=== PATIENT | male | born 1935 | race Caucasian/White ===

== ENCOUNTER 2017-01-02 01:38 | Observation (INO) | payer OTHER, MEDICARE ==
[2017-01-02] MEDS ORDERED: IPRATROPIUM/ALBUTEROL 0.5-2.5 MG/3 ML AMPUL NEB ONE (02:11)
[2017-01-02] MEDS ORDERED: METHYLPREDNISOLONE INJ 125 MG/2 ML SDV IV ONE (02:11)
--- NOTE | 2017-01-02 02:13 | ER Document Report ---
ED General - General Chief Complaint: Shortness Of Breath Stated Complaint: TROUBLE BREATHING Time Seen by Provider: 01/02/17 01:51 Cannot obtain history due to: Unstable vital signs Notes: Patient is an 81-year-old male with a past medical history of COPD with chronic oxygen dependence between 3 and 4 L by nasal cannula at all times as well as a history of lung malignancy not currently receiving any therapy due to his desire to who presents with acute shortness of breath. Patient states he woke up from a nap acutely short of breath. He tried a nebulizer with minimal improvement of his symptoms. States has a history of similar symptoms in the past for COPD exacerbations that have required hospitalizations. He does arrive by EMS. He denies any associated chest pain, fever or constitutional symptoms. History is otherwise somewhat limited secondary to patient's respiratory distress. - Related Data Allergies/Adverse Reactions: No Known Allergies Allergy (Verified 06/03/12 12:46) Home Medications: Current Home Medications Albuterol Sulfate [Proair Hfa Inhalation Aerosol 8.5 gm Mdi] 1 puff IH Q4 PRN [History] Dexlansoprazole [Dexilant 60 mg Capsule] 60 mg PO DAILY 01/02/17 [History] Fluticasone/Salmeterol [Advair HFA 115-21 mcg Inhaler] 2 puff IH ASDIR PRN 01/02 [History] Oxycodone HCl [Oxycodone HCl 10 MG Tablet] 10 mg PO Q4HP PRN 01/02/17 [History] Tamsulosin HCl 0.4 mg PO BID 01/02/17 [History] Temazepam [Restoril] 22.5 mg PO QHS 01/02/17 [History] Past Medical History - General Information source: Patient - Social History Smoking Status: Former Smoker Frequency of alcohol use: None Drug Abuse: None Lives with: Spouse/Significant other Family History: Reviewed & Not Pertinent Pulmonary Medical History: Reports: Hx COPD Neurological Medical History: Denies: Hx Seizures Past Surgical History: Reports: Hx Abdominal Surgery, Hx Cardiac Catheterization - Immunizations Hx Diphtheria, Pertussis, Tetanus Vaccination: Yes Hx Pneumococcal Vaccination: 11/12/11 Review of Systems - Review of Systems Notes: Constitutional: Negative for fever. HENT: Negative for sore throat. Eyes: Negative for visual changes. Cardiovascular: Negative for chest pain. Respiratory: Positive for shortness of breath. Gastrointestinal: Negative for abdominal pain, vomiting or diarrhea. Genitourinary: Negative for dysuria. Musculoskeletal: Negative for back pain. Skin: Negative for rash. Neurological: Negative for headaches, weakness or numbness. 10 point ROS negative except as marked above and in HPI. Physical Exam - Vital signs Vitals: Pulse Ox 100 01/02/17 01:46 Interpretation: Tachycardic, Tachypneic Notes: PHYSICAL EXAMINATION: GENERAL: Somewhat emaciated, appears to be in moderate respiratory distress and uncomfortable HEAD: Atraumatic, normocephalic. EYES: Pupils equal round and reactive to light, extraocular movements intact, sclera anicteric, conjunctiva are normal. ENT: nares patent, oropharynx clear without exudates. Moderately dry mucous membranes. NECK: Normal range of motion, supple without lymphadenopathy LUNGS: Diminished breath sounds throughout. Scattered wheezes and rhonchi throughout. HEART: Regular tachycardia without murmurs ABDOMEN: Soft, nontender, normoactive bowel sounds. No guarding, no rebound. No masses appreciated. EXTREMITIES: Normal range of motion, no pitting or edema. No cyanosis. NEUROLOGICAL: No focal neurological deficits. Moves all extremities spontaneously and on command. PSYCH: Normal mood, normal affect. SKIN: Warm, Dry, normal turgor, no rashes or lesions noted. Course - Re-evaluation Re-evalutation: 01/02/17 02:12 Patient arrives in moderate respiratory distress, breathing 28-30 times a minute , supraclavicular retractions, rhonchorous and wheezing air movement throughout. Patient has a history of COPD with baseline oxygen dependence and a history of lung malignancy that he is not receiving therapy for. Although patient was not hypoxic he stated he felt he could not breathe and was having progressively worsening tachypnea on a nonrebreather. He was therefore placed on BiPAP with significant improvement of his work of breathing. Continuous in- line nebulizers were initiated. An IV was established and Solu-Medrol as well as magnesium have been given. Will obtain chest x-ray, labs, and continue to monitor closely. Patient is critically ill at this time given his ongoing tachypnea and need for positive pressure ventilation. 01/02/17 03:04 Patient's work of breathing is dramatically improved on the BiPAP. Current respiratory rate is 19, saturating 98% on 35% FiO2 12 on 6. Initial laboratories are unremarkable. Awaiting chest x-ray. 01/02/17 03:39 X-ray does show a large right lung mass and possible right lower lobe pneumonia. With the remainder laboratories. Patient's work of breathing remains improved on BiPAP. Have increased patient's 60% FiO2 to maintain his saturations above 95%. Will start empirically on IV ceftriaxone, IV fluids, and plan for admission. 01/02/17 04:12 Patient's work of breathing remains improved. I discussed with Dr. Ramirez who will accept the patient for admission. - Vital Signs Vital signs: Temp Pulse Resp BP Pulse Ox 97.8 F 24 H 96 01/02/17 01:51 01/02/17 03:26 01/02/17 03:26 - Laboratory Result Diagrams: 01/02/17 02:35 01/02/17 02:35 Laboratory results interpreted by me: 01/02/17 01/02/17 02:35 02:35 RBC 3.76 L Hgb 10.4 L Hct 30.1 L RDW 15.0 H Seg Neutrophils % 78.5 H Sodium 133.4 L Chloride 94 L Glucose 120 H Albumin 3.1 L - Diagnostic Test Radiology reviewed: Image reviewed, Reports reviewed Radiology results interpreted by me: 01/02/17 04:12 Chest x-ray: Large right lung mass. Critical Care Note - Critical Care Note Total time excluding time spent on procedures (mins): 38 Comments: Critical care time spent obtaining history from patient or surrogate, discussions with consultants, development of treatment plan with patient or surrogate, evaluation of patient's response to treatment, examination of patient , ordering and performing treatments and interventions, ordering and review of laboratory studies, re-evaluation of patient's condition, ordering and review of radiographic studies and review of old charts Discharge - Discharge Clinical Impression: Respiratory distress, COPD exacerbation Lung cancer Qualifiers: Laterality: right Lung location: unspecified part of lung Qualified Code(s): C34.91 - Malignant neoplasm of unspecified part of right bronchus or lung Condition: Fair Disposition: ADMITTED INPATIENT Admitting Provider: Hospitalist Unit Admitted: [facility]
[2017-01-02] MEDS: MAGNESIUM SULFATE/D5W 1 GM/100 ML RTUPB IV SCH ×2 (02:25→03:00)
[2017-01-02 02:45] LABS: ABSOLUTE EOSINOPHILS # (AUTO) 0.1 10^3/uL (0.0-0.6); ABSOLUTE LYMPHOCYTES (AUTO) 1.2 10^3/uL (0.5-4.7); ABSOLUTE MONOCYTES (AUTO) 0.5 10^3/uL (0.1-1.4); ABSOLUTE NEUT (AUTO) 6.5 10^3/uL (1.7-8.2); BASOPHILS % (AUTO) 0.4 % (0-2); EOSINOPHILS % (AUTO) 0.8 % (0-6); HEMATOCRIT 30.1 % (37.9-51.0); HEMOGLOBIN 10.4 g/dL (13.5-17.0); HGB HCT DIFFERENCE 1.1; LYMPHOCYTES % (AUTO) 14.2 % (13-45); MEAN CORPUSCULAR HEMOGLOBIN 27.6 pg (27.0-33.4); MEAN CORPUSCULAR HGB CONC 34.4 g/dL (32.0-36.0); MEAN CORPUSCULAR VOLUME 80 fl (80-97); MONOCYTES % (AUTO) 6.1 % (3-13); RED BLOOD COUNT 3.76 10^6/uL (4.35-5.55); SEGMENTED NEUTROPHILS % (AUTO) 78.5 % (42-78); WHITE BLOOD COUNT 8.2 10^3/uL (4.0-10.5)
[2017-01-02] MEDS ORDERED: NORMAL SALINE 1000 ML 1,000 ML IV ONE (03:39)
[2017-01-02 04:06] LABS: ALANINE AMINOTRANSFERASE 26 U/L (21-72); ALBUMIN 3.1 g/dL (3.5-5.0); ALKALINE PHOSPHATASE 82 U/L (38-126); ANION GAP 9 (5-19); ASPARTATE AMINO TRANSFERASE 18 U/L (17-59); BILIRUBIN,DIRECT 0.4 mg/dL (0.0-0.4); BILIRUBIN,TOTAL 0.8 mg/dL (0.2-1.3); BLOOD UREA NITROGEN 12 mg/dL (7-20); CALCIUM 8.9 mg/dL (8.4-10.2); CARBON DIOXIDE 30 mmol/L (22-30); CHLORIDE 94 mmol/L (98-107); CREATININE RESULT 0.82 mg/dL (0.52-1.25); GLUCOSE 120 mg/dL (75-110); POTASSIUM 4.5 mmol/L (3.6-5.0); SODIUM 133.4 mmol/L (137-145); TOTAL PROTEIN 6.7 g/dL (6.3-8.2)
--- NOTE | 2017-01-02 04:12 | RADIOLOGY REPORT (SQ) ---
EXAM DESCRIPTION: CHEST SINGLE VIEW COMPLETED DATE/TIME: 01/02/2017 3:42 am REASON FOR STUDY: Shortness of breath. Known right lung mass. Palliative care. COMPARISON: CT chest 06/04/2012. Chest x-ray 06/03/2012. EXAM PARAMETERS: NUMBER OF VIEWS: One view. TECHNIQUE: Single frontal radiographic view of the chest acquired. RADIATION DOSE: NA LIMITATIONS: None. FINDINGS: LUNGS AND PLEURA: Airspace opacity at the right suprahilar region. Hyperlucent lungs, sug gestive of emphysema. No pleural effusion or pneumothorax. MEDIASTINUM AND HILAR STRUCTURES: Dilated descending thoracic aorta, probably corresponding to known thoracic aneurysm, appears increased in the interval. HEART AND VASCULAR STRUCTURES: The heart is not enlarged. No overt vascular congestion. BONES: No acute findings. HARDWARE: None in the chest. IMPRESSION: Airspace opacity at the right suprahilar region, may correspond to known mass. Descendi ng thoracic aortic aneurysm, appears increased in the interval. Emphysema. COMMENT: Pertinent findings on the imaging study reported as a CRITICAL RESULT to GLENN miranda t04:00 hrs on 01/02/2017. Category of Critical Result: Airspace opacity at the right suprahilar region. Descending thoracic ao rtic aneurysm. TECHNICAL DOCUMENTATION: JOB ID: [id number]
[2017-01-02] MEDS ORDERED: OXYCODONE HCL IR 5 MG TABLET PO PRN (04:51)
[2017-01-02] MEDS ORDERED: ALBUTEROL SULFATE 0.083% NEB 2.5 MG/3 ML AMPUL NEB PRN (04:54)
[2017-01-02] MEDS ORDERED: ONDANSETRON HCL INJ/PF 4 MG/2 ML SDV IV PRN ×2 (04:54→11:00)
[2017-01-02] MEDS ORDERED: ALBUTEROL SULFATE HFA (90 MCG/PUFF) 200 PUFF/8.5 GM MDI IH PRN ×2 (04:58→09:36)
[2017-01-02] MEDS ORDERED: CEFTRIAXONE 1 GM/D5W RTU 1 GM/50 ML RTUPB IV ONE (05:00)
--- NOTE | 2017-01-02 05:29 | PDOC H&P ---
History of Present Illness Admission Date/PCP: 01/02/17 04:24 Dr. Solo History of Present Illness: DERIK NAJERA is a 81 year old male with a past medical history of O2 dependent COPD normally on between 3 and 4 L by nasal cannula, thoracic aortic aneurysm, lung malignancy not currently receiving any therapy due to his choice who presents with acute shortness of breath. Patient states he woke up from a nap acutely short of breath. He tried a nebulizer with minimal improvement of his symptoms. States has a history of similar symptoms in the past for COPD exacerbations that have required hospitalizations. He denies any associated chest pain, fever or constitutional symptoms. Patient reports at this time that he does not want any of this. He reports that he has been having hemoptysis and increased cough. He does report bilateral lower extremity swelling left greater than right. He reports his son has just left town and his daughter is expected in today. He would like to go home with hospice as soon as possible. He is referred to the hospitalist service for observation Past Medical History Cardiac Medical History: Reports: Other - Thoracic aortic aneurysm Pulmonary Medical History: Reports: Chronic Obstructive Pulmonary Disease (COPD) Neurological Medical History: Denies: Seizures Malignancy Medical History: Reports: Lung Cancer Past Surgical History Past Surgical History: Reports: Cardiac Catheterization, Knee Replacement, Other - Aortic graft Social History Lives with: Alone Smoking Status: Former Smoker Frequency of Alcohol Use: Social Hx Recreational Drug Use: No Hx Prescription Drug Abuse: No - Advance Directive Resuscitation Status: Do Not Resuscitate Surrogate healthcare decision maker:: SonDerik Jamaal Family History Family History: Malignancy Parental Family History Reviewed: Yes Children Family History Reviewed: Yes Sibling(s) Family History Reviewed.: Yes Medication/Allergy Home Medications: Albuterol Sulfate [Proair Hfa Inhalation Aerosol 8.5 gm Mdi] 1 puff IH Q4 PRN Dexlansoprazole [Dexilant 60 mg Capsule] 60 mg PO DAILY 01/02/17 Fluticasone/Salmeterol [Advair HFA 115-21 mcg Inhaler] 2 puff IH ASDIR PRN 01/02 Oxycodone HCl [Oxycodone HCl 10 MG Tablet] 10 mg PO Q4HP PRN 01/02/17 Tamsulosin HCl 0.4 mg PO BID 01/02/17 Temazepam [Restoril] 22.5 mg PO QHS 01/02/17 Allergies/Adverse Reactions: No Known Allergies Allergy (Verified 06/03/12 12:46) Review of Systems Constitutional: PRESENT: fatigue, weakness. ABSENT: chills, fever(s), headache( s), weight gain, weight loss Eyes: ABSENT: visual disturbances Ears: ABSENT: hearing changes Cardiovascular: PRESENT: edema. ABSENT: chest pain, dyspnea on exertion, orthropnea, palpitations Respiratory: PRESENT: cough, dyspnea, hemoptysis, sputum Gastrointestinal: PRESENT: constipation, heartburn. ABSENT: abdominal pain, diarrhea, hematemesis, hematochezia, melena, nausea, vomiting Genitourinary: ABSENT: dysuria, hematuria Musculoskeletal: ABSENT: joint swelling Integumentary: ABSENT: rash, wounds Neurological: ABSENT: abnormal gait, abnormal speech, confusion, dizziness, focal weakness, syncope Psychiatric: ABSENT: anxiety, depression, homidical ideation, suicidal ideation Endocrine: ABSENT: cold intolerance, heat intolerance, polydipsia, polyuria Hematologic/Lymphatic: ABSENT: easy bleeding, easy bruising Physical Exam Vital Signs: Temp Pulse Resp BP Pulse Ox 97.8 F 25 H 115/86 H 98 01/02/17 01:51 01/02/17 04:00 01/02/17 01:51 01/02/17 04:00 Intake & Output 12/31/16 01/01/17 01/02/17 06:59 06:59 06:59 Weight 70.307 kg General appearance: PRESENT: severe distress, thin, other - Chronically ill- appearing Head exam: PRESENT: atraumatic, normocephalic Eye exam: PRESENT: conjunctiva pink, EOMI, PERRLA. ABSENT: conjunctival injection, scleral icterus Ear exam: PRESENT: normal external ear exam Mouth exam: PRESENT: moist, tongue midline Neck exam: ABSENT: JVD, lymphadenopathy, thyromegaly, tracheal deviation Respiratory exam: PRESENT: accessory muscle use, crackles, prolonged expiratory phas, retraction, symmetrical, tachypnea, wheezes. ABSENT: rales, rhonchi Cardiovascular exam: PRESENT: RRR, +S1, +S2, systolic murmur, tachycardia. ABSENT: diastolic murmur, rubs Pulses: PRESENT: normal dorsalis pedis pul Vascular exam: PRESENT: normal capillary refill GI/Abdominal exam: PRESENT: hypoactive bowel sounds, soft. ABSENT: distended, firm, guarding, mass, Duque's sign, organolmegaly, rebound, rigid, tenderness Rectal exam: PRESENT: deferred Extremities exam: PRESENT: full ROM, +2 edema - Left greater than right. ABSENT : clubbing Neurological exam: PRESENT: alert, awake, oriented to person, oriented to place , oriented to time, oriented to situation, CN II-XII grossly intact. ABSENT: motor sensory deficit Psychiatric exam: PRESENT: appropriate affect, normal mood. ABSENT: homicidal ideation, suicidal ideation Skin exam: PRESENT: dry, intact, warm. ABSENT: cyanosis, rash Results Laboratory Results: 01/02/17 01/02/17 01/02/17 02:35 02:35 02:35 WBC 8.2 Hgb 10.4 L Hct 30.1 L Plt Count 284 Sodium 133.4 L Potassium 4.5 Troponin I < 0.012 Impressions: Chest X-Ray 01/02/17 02:10 IMPRESSION: Airspace opacity at the right suprahilar region, may correspond to known mass. Descending thoracic aortic aneurysm, appears increased in the interval. Emphysema. Status: Imported from PACS Assessment & Plan - Diagnosis (1) COPD exacerbation Is this a current diagnosis for this admission?: Yes (2) Acute on chronic respiratory failure with hypoxemia Is this a current diagnosis for this admission?: Yes (3) Thoracic aortic aneurysm Qualifiers: Presence of rupture: without rupture Qualified Code(s): I71.2 - Thoracic aortic aneurysm, without rupture Is this a current diagnosis for this admission?: Yes (4) Lung cancer Qualifiers: Laterality: right Lung location: unspecified part of lung Qualified Code( s): C34.91 - Malignant neoplasm of unspecified part of right bronchus or lung Is this a current diagnosis for this admission?: Yes - Inpatient Certification Based on my medical assessment, after consideration of the patient's comorbidities, presenting symptoms, or acuity I expect that the services needed warrant INPATIENT care.: No I certify that my determination is in accordance with my understanding of Medicare's requirements for reasonable and necessary INPATIENT services [42 CFR 412.3e].: No Post Hospital Care: D/C Talent Analyst Documentation - Plan Summary Plan Summary: At this time, patient wishes to go home with we will begin patient on prednisone and nebulized treatments and Levaquin. Will consult discharge planning for a hasty discharge with hospice. Patient prefers to go to home hospice although the offer was made for inpatient to him.
[2017-01-02] MEDS ORDERED: LANSOPRAZOLE 30 MG TAB.RAP.DR PO SCH (06:00)
[2017-01-02] MEDS ORDERED: LORAZEPAM INJ 2 MG/1 ML VIAL IV PRN (06:20)
[2017-01-02] MEDS: LANSOPRAZOLE 30 MG TAB.RAP.DR PO SCH (08:07)
--- NOTE | 2017-01-02 08:22 | Physician Advisory Note ---
Physician Advisor ProgressNote .: [facility] medical [facility] for this patient. Physician Advisor Statement: Very nice documentation of Ac on Chr hypoxemic resp failure, including s/s & need for Bipap (with increased FiO2 to maintain sats >95% per ED dr). Please consider documenting, if you agree: 1. Status (see below) 2. "Possible Acute bronchitis" - or whatever is being tx'd with abx 3. "Acute hyponatremia, likely due to ____" [Pt can have atrociously abnormal K/Mag/Ca & no credit for the extra morbidity is given on DRG, but pt can have even a tiny abnormality of Na & it counts towards a higher DRG if it is documented & addressed in some way. Seems reasonable to document it when it is present and not spurious, even if it is not the main reason for admission.... ] 4. "underweight with protein-calorie malnutrition [state mild, mod, or severe] with BMI 22.7, ____[?wt loss, ?appetite loss, ]" [if possible, give specifics on intake, wt loss, loss of SQ fat & muscle mass, diminished hand sales representative electric service strength, & clinical importance such as (A) nutritional assessment ordered, (B) modified diet or supplements ordered, (C) delayed infxn clearance] 5. Type of lung CA, if known. STatus: 81yo " primary" pt w/COPD & Rt-sided lung CA, chronic resp failure - in w /"mod resp distress", retractions, needing Bipap & increased FiO2, steroids, bases status determinations on severity of illness & intensity of service, without regard to # MNs (as opposed to Medicare, which requires SOI/ IOS + expectation of 2MNs at time of order). [Attendings are not expected to know this - that's what UM/Phys Advisors are for.] Therefore, attending's impulse towards Inpatient is correct in this case, even if patient does not stay a 2nd MN. Appropriate for Inpatient status. CK
[2017-01-02] MEDS: IPRATROPIUM/ALBUTEROL 0.5-2.5 MG/3 ML AMPUL NEB SCH ×3 (08:30→20:16)
[2017-01-02] MEDS ORDERED: (PENDING PHARMACY ID) (Fluticasone/Salmeterol [Advair Hfa 115-21 Mcg Inhaler] 2 PUFF) IH SCH (10:00)
[2017-01-02] MEDS: LEVOFLOXACIN 750 MG TABLET PO SCH (10:35)
[2017-01-02] MEDS: TAMSULOSIN HCL 0.4 MG CAP.SR.24H PO SCH ×2 (10:36→17:12)
[2017-01-02] MEDS: DOCUSATE SODIUM 100 MG CAPSULE PO SCH ×2 (10:36→17:12)
[2017-01-02] MEDS: PREDNISONE 20 MG TABLET PO SCH (10:36)
[2017-01-02] MEDS: OXYCODONE HCL IR 5 MG TABLET PO PRN ×3 (10:43→22:45)
[2017-01-02] MEDS: MORPHINE SULFATE 10 MG/ML INJ IV PRN ×3 (14:11→22:45)
[2017-01-02] MEDS: FLUTICASONE/SALMETEROL DISKUS 250-50 MCG/DOSE IH SCH (21:37)
[2017-01-02] MEDS ORDERED: TEMAZEPAM 7.5 MG CAPSULE PO SCH (22:00)
[2017-01-02] MEDS ORDERED: TEMAZEPAM 22.5 MG PO SCH (22:00)
[2017-01-02] MEDS ORDERED: TEMAZEPAM 15 MG CAPSULE PO SCH (22:00)
[2017-01-03] MEDS: IPRATROPIUM/ALBUTEROL 0.5-2.5 MG/3 ML AMPUL NEB SCH ×3 (02:01→14:33)
[2017-01-03] MEDS: MORPHINE SULFATE 10 MG/ML INJ IV PRN ×2 (02:42→06:55)
[2017-01-03] MEDS: OXYCODONE HCL IR 5 MG TABLET PO PRN (04:49)
[2017-01-03] MEDS: LANSOPRAZOLE 30 MG TAB.RAP.DR PO SCH (04:49)
[2017-01-03] MEDS ORDERED: METHYLPREDNISOLONE INJ 40 MG/1 ML SDV IV ONE (09:17)
[2017-01-03] MEDS ORDERED: METHYLPREDNISOLONE INJ 125 MG/2 ML SDV IV ONE (10:15)
[2017-01-03] MEDS ORDERED: MORPHINE SULFATE 10 MG/ML INJ IV ONE (10:30)
--- NOTE | 2017-01-03 10:31 | PDOC DISCHARGE SUMMARY ---
General - Admit/Disc Date/PCP Admission Date/Primary Care Provider: 01/02/17 04:54 Discharge Date: 01/03/17 - Discharge Diagnosis (1) Acute on chronic respiratory failure with hypoxemia Is this a current diagnosis for this admission?: Yes Summary: Improved. Pt admitted overnight with a history of O2 dependent COPD normally wearing between 3 and 4 L by nasal cannula. He presented with acute increased shortness of breath did not respond to home nebulizer treatments. He was placed on BiPAP as needed and nightly and started on p.o. prednisone and Levaquin for presumed bronchitis. This morning the patient reports that his respiratory status has returned to its baseline and he is anxious to be discharged home with continued care through hospice services. (2) COPD exacerbation Is this a current diagnosis for this admission?: Yes Summary: As above. (3) Lung cancer Is this a current diagnosis for this admission?: Yes Summary: [facility] is agreeable to accept patient into their services today. Will meet patient at home for admission. (4) Thoracic aortic aneurysm Is this a current diagnosis for this admission?: Yes - Additional Information Resuscitation Status: Do Not Resuscitate Discharge Diet: Regular Discharge Activity: Activity As Tolerated, Balance Activity w/Rest, Energy Conservation Home Medications: Albuterol Sulfate [Proair HFA Inhalation Aerosol 8.5 gm MDI] 1 puff IH Q4 PRN Dexlansoprazole [Dexilant 60 mg Capsule] 60 mg PO DAILY 01/02/17 Fluticasone/Salmeterol [Advair HFA 115-21 mcg Inhaler] 2 puff IH Q12 01/02/17 Oxycodone HCl [Oxycodone HCl 10 MG Tablet] 10 mg PO Q4HP PRN 01/02/17 Tamsulosin HCl 0.4 mg PO BID 01/02/17 Temazepam [Restoril] 22.5 mg PO QHS 01/02/17 Ipratropium/Albuterol Sulfate [Duoneb 3 ml Ampul] 3 ml NEB RTQ6 #100 vial.neb Levofloxacin [Levaquin 750 mg Tablet] 750 mg PO DAILY #7 tablet 01/03/17 Prednisone [Deltasone 20 mg Tablet] 60 mg PO DAILY #15 tablet 01/03/17 History of Present Illness Patient complains of: Shortness of breath History of Present Illness: Per H&P by Dr. Ramirez: KEILY NAJERA is a 81 year old male with a past medical history of O2 dependent COPD normally on between 3 and 4 L nasal cannula , thoracic aortic aneurysm, lung malignancy seen not currently receiving any therapy due to his choice who presents with acute shortness of breath. Patient states he woke up from a nap acutely short of breath. He tried a nebulizer with minimal improvement of his symptoms. States he has a history of similar symptoms in the past for COPD exacerbations that required hospitalizations. He denies associated chest pain, fever or constitutional symptoms. Patient reports at this time that he does not want any of this. He reports that he has been having hemoptysis and increased cough. He does report bilateral lower extremity swelling left greater than right. He reports his son has just left town and his daughter is expected in today. He would like to go home with hospice as soon as possible. He is referred to the hospitalist service for observation Hospital Course Hospital Course: Patient was admitted overnight for observation acute on chronic respiratory failure related to COPD and lung malignancy. He was placed on p.o. prednisone and Levaquin for a presumed bronchitis with supplemental oxygen and BiPAP as needed and nightly. This morning he reports that his respiratory status has returned to his baseline and that he wishes to be discharged home to meet with hospice admission nurse this morning. Physical Exam Vital Signs: Temp Pulse Resp BP Pulse Ox 97.7 F 63 16 113/69 92 01/03/17 00:00 01/03/17 08:08 01/03/17 08:08 01/03/17 00:00 01/03/17 08:08 Intake & Output 01/02/17 01/03/17 01/04/17 06:59 06:59 06:59 Intake Total 560 Output Total 300 Balance 260 Weight 75.8 kg 75.8 kg General appearance: PRESENT: no acute distress, thin, well-developed, other - chronically ill appearing Head exam: PRESENT: atraumatic, normocephalic Eye exam: PRESENT: conjunctiva pink, EOMI, PERRLA. ABSENT: scleral icterus Ear exam: PRESENT: normal external ear exam Mouth exam: PRESENT: moist, tongue midline Neck exam: ABSENT: carotid bruit, JVD, lymphadenopathy, thyromegaly Respiratory exam: PRESENT: clear to auscultation mannie, decreased breath sounds - bibasilar; poor inspiratory effort, prolonged expiratory phas, rhonchi - throughout, symmetrical. ABSENT: crackles, rales, tachypnea, unlabored, wheezes Cardiovascular exam: PRESENT: RRR, systolic murmur. ABSENT: diastolic murmur, rubs Pulses: PRESENT: normal dorsalis pedis pul Vascular exam: PRESENT: normal capillary refill GI/Abdominal exam: PRESENT: normal bowel sounds, soft. ABSENT: distended, guarding, mass, organolmegaly, rebound, tenderness Rectal exam: PRESENT: deferred Extremities exam: PRESENT: full ROM. ABSENT: calf tenderness, clubbing, pedal edema Neurological exam: PRESENT: alert, awake, oriented to person, oriented to place , oriented to time, oriented to situation, CN II-XII grossly intact. ABSENT: motor sensory deficit Psychiatric exam: PRESENT: agitated, appropriate affect. ABSENT: homicidal ideation, suicidal ideation Skin exam: PRESENT: dry, intact, warm. ABSENT: cyanosis, rash Results Impressions: Chest X-Ray 01/02/17 02:10 IMPRESSION: Airspace opacity at the right suprahilar region, may correspond to known mass. Descending thoracic aortic aneurysm, appears increased in the interval. Emphysema. Plan Discharge Plan: Discharge home with [facility] admission planned for today. Time Spent: Less than 30 Minutes
[2017-01-03] MEDS: FLUTICASONE/SALMETEROL DISKUS 250-50 MCG/DOSE IH SCH (10:49)
[2017-01-03] MEDS: PREDNISONE 20 MG TABLET PO SCH (10:49)
[2017-01-03] MEDS: TAMSULOSIN HCL 0.4 MG CAP.SR.24H PO SCH (10:49)
[2017-01-03] MEDS: LEVOFLOXACIN 750 MG TABLET PO SCH (10:49)
[2017-01-03] MEDS: DOCUSATE SODIUM 100 MG CAPSULE PO SCH (10:49)
[2017-01-03 11:48] VITALS: BP 119/71
== END 2017-01-03 14:55 | disposition hospice, home (50) ==
LOC: ER 01:38 → EH 04:24 → UNDOADMOB 04:24 → INTOOBSV 04:24 → EH 04:54 → 3S 06:54 → 4S 18:06
PROVIDERS: ADMIT Family Medicine; ATTEND Family Medicine
PROC: 3E0F7GC Introduction of Other Therapeutic Substance into Respiratory Tract, Via Natural or Artificial Opening (ICD-10-PCS; principal; 2017-01-02)
PROC: 5A09357 Assistance with Respiratory Ventilation, Less than 24 Consecutive Hours, Continuous Positive Airway Pressure (ICD-10-PCS; 2017-01-02)
DX: J96.21 Acute and chronic respiratory failure with hypoxia (principal); J44.1 Chronic obstructive pulmonary disease with (acute) exacerbation; C34.91 Malignant neoplasm of unspecified part of right bronchus or lung; I71.2 Thoracic aortic aneurysm, without rupture; R60.0 Localized edema; K59.00 Constipation, unspecified; R12 Heartburn; Z66 Do not resuscitate; Z99.81 Dependence on supplemental oxygen; Z79.899 Other long term (current) drug therapy; Z80.9 Family history of malignant neoplasm, unspecified; Z95.818 Presence of other cardiac implants and grafts
CPT/HCPCS: 94640 ×4; 99291; 96375; 96365; 36415; 85025; 80053; 84484; 71010; 94660 ×2; J2930 ×2; J2270 ×2; J2060; J3475; J7512 ×2; J3490 ×4; J7030; J0696; J7620 ×2